=== PATIENT | male | born 1975 | race Hispanic/Latino ===

== ENCOUNTER 2023-12-12 12:57 | Emergency (ER) | payer SELFPAY ==
[2023-12-12] MEDS: Diphtheria,Pertussis(Acell),Tetanus Vaccine 0.5 ML Syringe IM ONE (13:51)
[2023-12-12] MEDS: Octyl 2-Cyanoacrylate 1 g/1 mL 1 APPLIC PEN TOP STA (13:52)
== END 2023-12-12 14:24 | disposition home or self-care (01) ==
LOC: MW.ED 12:57
DX: S01.21XA Laceration without foreign body of nose, initial encounter (principal); Z23 Encounter for immunization; W22.8XXA Striking against or struck by other objects, initial encounter
CPT/HCPCS: 12011; 90471; 90715; 99282; A9270